=== PATIENT | female | born 1950 | race Caucasian/White ===

== ENCOUNTER → 2017-09-14 | Outpatient (CLI) | payer MEDICARE, OTHER ==
[2015-04-03 18:00] VITALS: BP 150/90
[~2017-09-14] MED LIST: CHOL200074 PO; FISH12002 PO; NIFE30TA17 PO; TOLT2CAP PO; VALS40TA2 PO
--- NOTE | 2017-09-14 13:01 | RAD ---
EXAM: Dual energy x-ray absorptiometry (DEXA). HISTORY: Postmenopausal female presents for osteoporosis screening. COMPARISON: 02/12/2015. TECHNIQUE: Dual energy x-ray absorptiometry of the lumbar spine was performed. Calculation of bone mineral density based on standard deviations above or below the expected young adult normal value (T-score) was completed. FINDINGS: The average bone mineral density in the 1st through 4th lumbar vertebrae is 1.144 g/cmxcm, corresponding with a T-score of -0.3. There has been a 1.1% increase in density of the lumbar spine compared to the prior study. IMPRESSION: Normal bone mineral density. Note: Definitions established by the World Health Organization: 1. Normal: T-score is -1.0 or above. 2. Osteopenia: T-score is between -1.0 and -2.5 . 3. Osteoporosis: T-score is -2.5 or below. Electronically signed by: Michelle Terrell MD (09/14/2017 12:57 PM) [id number]
--- NOTE | 2017-09-14 16:14 | RAD ---
Indication: Routine screening Technique: 2-D intensity bilateral mammogram Comparison: Previous mammogram from 2015. Findings: Breast density category D: The breasts are extremely dense which reduces the sensitivity of the exam. The skin and nipples are within normal limits. There is a 5 mm round mass in the outer right breast approximately 9 cm from the nipple best seen on cc view which was not seen on previous study. No suspicious calcifications, spiculated mass or area of architectural distortion. Benign bilateral calcifications. The left breast demonstrates no mammographic abnormality. Impression: Round mass in the right breast as described above most certainly represents a skin mole. However, confirmation is recommended. BI-RADS 0: Incomplete. Right breast mammogram with skin marker if there is indeed a skin mole present. Otherwise ultrasound of the right outer breast recommended. PQRS compliance statement: Patient information was entered into a reminder system with a target due date for the next mammogram. Mammography is a sensitive method for finding small breast cancers, but it does not detect them all and is not a substitute for careful clinical examination. A negative mammogram does not negate a clinically suspicious finding and should not result in delay in biopsying a clinically suspicious abnormality. "Our facility is accredited by the [employer] Mammography Program."
== END | disposition home or self-care (01) ==
LOC: DXRAD 10:08
PROVIDERS: ATTEND Family Medicine
DX: Z12.31 Encounter for screening mammogram for malignant neoplasm of breast (principal); Z13.820 Encounter for screening for osteoporosis; I12.9 Hypertensive chronic kidney disease with stage 1 through stage 4 chronic kidney disease, or unspecified chronic kidney disease; N18.2 Chronic kidney disease, stage 2 (mild); Z78.0 Asymptomatic menopausal state
CPT/HCPCS: 77063; 77067; 77080

== ENCOUNTER → 2017-09-29 | Outpatient (CLI) | payer MEDICARE, OTHER ==
[2015-04-03 18:00] VITALS: BP 150/90
--- NOTE | 2017-09-29 09:33 | RAD ---
DATE: 09/29/2017 EXAM: DIGITAL DIAGNOSTIC RT HISTORY: Suspicious screening study COMPARISON: 09/14/2017 This study was interpreted with the benefit of Computerized Aided Detection (CAD). The breast parenchyma is dense, which could reduce the sensitivity of mammography. Breast parenchyma level density D. FINDINGS: An upper outer skin mole was marked with a skin marker and additional MLO and cc views were obtained. They confirm the fact that a small nodular density seen in this region on the previous mammograms corresponds to the skin mole. IMPRESSION: There is no mammographic evidence of malignancy in the right breast. BI-RADS CATEGORY: 2 BENIGN FINDING(S) RECOMMENDED FOLLOW-UP: 12M 12 MONTH FOLLOW-UP PQRS compliance statement: Patient information was entered into a reminder system with a target due date for the next mammogram. Mammography is a sensitive method for finding small breast cancers, but it does not detect them all and is not a substitute for careful clinical examination. A negative mammogram does not negate a clinically suspicious finding and should not result in delay in biopsying a clinically suspicious abnormality. "Our facility is accredited by the [employer] Mammography Program."
== END | disposition home or self-care (01) ==
LOC: MAMMO 08:32
PROVIDERS: ATTEND Family Medicine
DX: R92.8 Other abnormal and inconclusive findings on diagnostic imaging of breast (principal); I12.9 Hypertensive chronic kidney disease with stage 1 through stage 4 chronic kidney disease, or unspecified chronic kidney disease; N18.2 Chronic kidney disease, stage 2 (mild)
CPT/HCPCS: 77065

== ENCOUNTER 2018-01-09 17:16 | Emergency (ER) | payer MEDICARE, OTHER ==
[~2018-01-09] VITALS: Ht 160 cm; Wt 74.4 kg
--- NOTE | 2018-01-09 17:49 | ED.ADGEN ---
Past History Past Medical History: Hypertension, Hypothyroid Past Surgical History: No Surgical History Alcohol Use: Occasionally Drug Use: None Adult General Chief Complaint Chief Complaint " .. I really started hurting yesterday... about noon... and it just gotten worse"...".. down here on the Rt...." HPI HPI Patient is a 67 year old female who presents with above hx and complaints of Rt. lower abd. pain. Pt. has hx of nausea and vomiting x 3. Decreased stool , but normal in color. Patient has had very little to eat since noon. No history of travel. No history of specific ill contacts. No history of surgeries. No history of trauma. No history of exposure to ill animals. No exposures to poultry, amphibians or reptiles. No history of colitis or Crohn' s. No history of renal stones . Patient normally follows with Dr. Granger for her hypertension and hypothyroidism. Patient currently rates her pain as 10 out of 10. Pain is been right lower quadrant. Does have rebound to right lower quadrant. Mild flank pain on percussion on right. Mild heel tap on right and obturator sign. Review of Systems Review of Systems Constitutional: Denies fever or chills [] Eyes: Denies change in visual acuity, redness, or eye pain [] HENT: Denies nasal congestion or sore throat [] Respiratory: Denies cough or shortness of breath [] Cardiovascular: No additional information not addressed in HPI [] GI: Complaints of abdominal pain, nausea, vomiting,. Denies bloody stools or diarrhea [] : Denies dysuria or hematuria [] Musculoskeletal: Denies back pain or joint pain [] Integument: Denies rash or skin lesions [] Neurologic: Denies headache, focal weakness or sensory changes [] Endocrine: Denies polyuria or polydipsia [] All other systems were reviewed and found to be within normal limits, except as documented in this note. Family History Family History Noncontributory Current Medications Current Medications Current Medications Medications (Trade) Dose Ordered Sig/Carmita Start Time Stop Time Status Last Admin Dose Admin Acetaminophen (Tylenol) 500 mg STK-MED ONCE 01/09/18 21:06 01/09/18 21:07 DC Ceftriaxone Sodium 1 gm/ Sodium Chloride 50 ml @ 100 mls/hr 1X ONCE 10/7/18 19:30 01/09/18 19:59 DC 01/09/18 19:24 100 MLS/HR Ceftriaxone Sodium (Rocephin) 1 gm STK-MED ONCE 01/09/18 19:21 01/09/18 19:22 DC Famotidine (Pepcid Vial) 20 mg 1X ONCE 01/09/18 18:00 01/09/18 18:01 DC 01/09/18 18:33 20 MG Info (Do NOT chart on this entry -- for MONITORING) 1 each PRN DAILY PRN 01/09/18 19:00 01/09/18 21:42 DC Iohexol (Omnipaque 240 Mg/ml) 50 ml STK-MED ONCE 01/09/18 18:58 01/09/18 18:59 DC Iohexol (Omnipaque 300 Mg/ml) 75 ml 1X ONCE 01/09/18 19:30 01/09/18 19:31 DC 01/09/18 20:10 75 ML Lactated Ringer's 1,000 ml @ 1,000 mls/hr 1X ONCE 01/09/18 19:00 01/09/18 19:59 DC 01/09/18 19:00 1,000 MLS/HR Metronidazole 100 ml @ 100 mls/hr 1X ONCE 01/09/18 20:00 01/09/18 21:00 DC 01/09/18 20:33 100 MLS/HR Morphine Sulfate (Morphine 10mg Syringe) 10 mg 1X ONCE 01/09/18 21:30 01/09/18 21:31 DC Ondansetron HCl (Zofran) 8 mg 1X ONCE 01/09/18 18:00 01/09/18 18:01 DC 01/09/18 18:33 8 MG Sodium Chloride 50 ml @ As Directed STK-MED ONCE 01/09/18 19:21 01/09/18 19:22 DC See nursing for home meds Allergies Allergies Allergies Coded Allergies Type Severity Reaction Last Updated Verified latex Allergy Unknown 01/09/18 Yes Physical Exam Physical Exam Constitutional: in acute distress, non-toxic appearance. [] HENT: Normocephalic, atraumatic, bilateral external ears normal, oropharynx dry , no oral exudates, nose normal. [] Eyes: PERRLA, EOMI, conjunctiva normal, no discharge. [] Neck: Normal range of motion, no tenderness, supple, no stridor. [] Cardiovascular: Tachycardia Heart rate regular rhythm, no murmur [] Lungs & Thorax: Bilateral breath sounds clear to auscultation at apexes. [] Abdomen: Bowel sounds decreased, soft, right lower tenderness, mild epigastric tenderness, no masses, no pulsatile masses. [] Pt. declines rectal or vaginal at this time. Walking - painful to Rt. lower quadrant. Skin: Warm, dry, no erythema, no rash. [] Back: No tenderness, no CVA tenderness. [] Extremities: No tenderness, no cyanosis, no clubbing, ROM intact, no edema. []+ Heel tap and obturator +. Neurologic: Alert and oriented X 3, normal motor function, normal sensory function, no focal deficits noted. [] Psychologic: Affect anxious , mood normal. [] Current Patient Data Vital Signs Vital Signs Date Time Temp Pulse Resp B/P (MAP) Pulse Ox O2 Delivery O2 Flow Rate FiO2 01/09/18 21:04 98 18 153/92 (112) 94 Room Air 01/09/18 17:42 98.4 Lab Results Laboratory Tests Test 01/09/18 17:57 01/09/18 18:14 White Blood Count 10.5 x10^3/uL (4.0-11.0) Red Blood Count 4.87 x10^6/uL (3.50-5.40) Hemoglobin 15.0 g/dL (12.0-15.5) Hematocrit 44.6 % (36.0-47.0) Mean Corpuscular Volume 92 fL (79-100) Mean Corpuscular Hemoglobin 31 pg (25-35) Mean Corpuscular Hemoglobin Concent 34 g/dL (31-37) Red Cell Distribution Width 13.6 % (11.5-14.5) Platelet Count 199 x10^3/uL (140-400) Neutrophils (%) (Auto) 86 % (31-73) H Lymphocytes (%) (Auto) 9 % (24-48) L Monocytes (%) (Auto) 5 % (0-9) Eosinophils (%) (Auto) 0 % (0-3) Basophils (%) (Auto) 1 % (0-3) Neutrophils # (Auto) 8.9 x10^3uL (1.8-7.7) H Lymphocytes # (Auto) 0.9 x10^3/uL (1.0-4.8) L Monocytes # (Auto) 0.5 x10^3/uL (0.0-1.1) Eosinophils # (Auto) 0.0 x10^3/uL (0.0-0.7) Basophils # (Auto) 0.1 x10^3/uL (0.0-0.2) Prothrombin Time 10.7 SEC (9.4-11.4) Prothrombin Time INR 1.1 (0.9-1.1) PTT 25 SEC (23-33) Sodium Level 138 mmol/L (136-145) Potassium Level 3.2 mmol/L (3.5-5.1) L Chloride Level 103 mmol/L (98-107) Carbon Dioxide Level 28 mmol/L (21-32) Anion Gap 7 (6-14) Blood Urea Nitrogen 14 mg/dL (7-20) Creatinine 1.2 mg/dL (0.6-1.0) H Estimated GFR (Cockcroft-Gault) 44.8 Glucose Level 108 mg/dL (70-99) H Calcium Level 9.0 mg/dL (8.5-10.1) Total Bilirubin 1.2 mg/dL (0.2-1.0) H Direct Bilirubin 0.4 mg/dL (0.0-0.2) H Aspartate Amino Transferase (AST) 22 U/L (15-37) Alanine Aminotransferase (ALT) 32 U/L (14-59) Alkaline Phosphatase 53 U/L (46-116) Creatine Kinase 132 U/L (26-192) Troponin I Quantitative < 0.017 ng/mL (0-0.055) Total Protein 7.2 g/dL (6.4-8.2) Albumin 3.6 g/dL (3.4-5.0) Amylase Level 31 U/L (25-115) Lipase 86 U/L (73-393) Urine Collection Type U cath Urine Color Yellow Urine Clarity Cloudy Urine pH 6.0 Urine Specific [place] 1.025 Urine Protein 100 mg/dl (NEG-TRACE) Urine Glucose (UA) Neg mg/dL (NEG) Urine Ketones (Stick) >=160 mg/dL (NEG) Urine Blood Small (NEG) Urine Nitrite Pos (NEG) Urine Bilirubin Neg (NEG) Urine Urobilinogen Dipstick 0.2 mg/dL (0.2 mg/dL) Urine Leukocyte Esterase Small (NEG) Urine RBC 1-2 /HPF (0-2) Urine WBC >40 /HPF (0-4) Urine Squamous Epithelial Cells Occ /LPF Urine Bacteria Many /HPF (0-FEW) Urine Opiates Screen Neg (NEG) Urine Methadone Screen Neg (NEG) Urine Barbiturates Neg (NEG) Urine Phencyclidine Screen Neg (NEG) Urine Amphetamine/Methamphetamine Neg (NEG) Urine Benzodiazepines Screen Neg (NEG) Urine Cocaine Screen Neg (NEG) Urine Cannabinoids Screen Neg (NEG) Urine Ethyl Alcohol Neg (NEG) EKG EKG My interpretation of EKG shows a sinus rhythm at 89 bpm. There is some leftward axis and findings of left ventricular hypertrophy. No findings acute STEMI of contralateral changes.[] Radiology/Procedures Radiology/Procedures My interpretation of acute abdomen shows no acute cardiopulmonary findings. No free air under the diaphragm. Does have scoliosis abdomen portion shows a few isolated bowel loops. Has a non- obstructive pattern. CT shows appendicitis, no free air. See formal report when available. Course & Med Decision Making Course & Med Decision Making Pertinent Labs and Imaging studies reviewed. (See chart for details). Discussed presentation, testing and tx.plan with Dr. Brown- she will accept at [facility]. Discussed presentation, testing and tx. plan with Dr. Diamond, he will accept for surgery consult - planned appendectomy in a.m.. [] Final Impression Final Impression 1. Abdomen pain 2. Urinary tract infection 3. Hypokalemia- 3.2 4. Elevated Creat. 5. Dehydration[] 6. Appendicitis Dragon Disclaimer Dragon Disclaimer This electronic medical record was generated, in whole or in part, using a voice recognition dictation system. TAMMY BYERS MD Jan 09, 2018 17:49
[2018-01-09] MEDS ORDERED: IV RINGERS SOLUTION,LACTATED 1,000 ML IV SCH (17:50)
[2018-01-09] MEDS ORDERED: ONDANSETRON PF 4 MG/2 ML VIAL. IV ONE (18:00)
[2018-01-09] MEDS ORDERED: FAMOTIDINE 20 MG/2 ML VIAL IVP ONE (18:00)
--- NOTE | 2018-01-09 18:04 | EKG ---
[address] [address] Test Date: 2018-01-09 Test Time: 18:03:11 Pat Name: FAHEEM CHA Department: Room: Gender: F Ground Hand: : 1950 Requested By: TAMMY BYERS Order Number: [id number] Reading MD: Lamin Weir MD Measurements Intervals [place] Rate: 89 P: 45 OR: 158 QRS: -29 QRSD: 92 T: 5 QT: 370 QTc: 457 Interpretive Statements SINUS RHYTHM Electronically Signed On 01-12-2018 12:16:09 CDT by Lamin Weir MD
[2018-01-09 18:18] LABS: BASO # 0.1 x10^3/uL (0.0-0.2); BASO % 1 % (0-3); EOS % 0 % (0-3); HEMATOCRIT 44.6 % (36.0-47.0); LYMPH # 0.9 x10^3/uL (1.0-4.8); LYMPH % 9 % (24-48); MEAN CORPUSCULAR HEMOGLOBIN 31 pg (25-35); MEAN CORPUSCULAR HGB CONC 34 g/dL (31-37); MEAN CORPUSCULAR VOLUME 92 fL (79-100); MONO # 0.5 x10^3/uL (0.0-1.1); MONO % 5 % (0-9); NEUT # 8.9 x10^3uL (1.8-7.7); NEUT % 86 % (31-73); PLATELET COUNT 199 x10^3/uL (140-400); RED BLOOD COUNT 4.87 x10^6/uL (3.50-5.40); RED CELL DISTRIBUTION WIDTH 13.6 % (11.5-14.5); WHITE BLOOD COUNT 10.5 x10^3/uL (4.0-11.0)
[2018-01-09 18:24] LABS: ALBUMIN 3.6 g/dL (3.4-5.0); CREATININE 1.2 mg/dL (0.6-1.0); DIRECT BILIRUBIN 0.4 mg/dL (0.0-0.2); GFR 44.8; POTASSIUM 3.2 mmol/L (3.5-5.1); TOTAL BILIRUBIN 1.2 mg/dL (0.2-1.0); TOTAL PROTEIN 7.2 g/dL (6.4-8.2)
--- NOTE | 2018-01-09 18:42 | RAD ---
Single view chest and upright and supine AP views abdomen 01/09/2018 Clinical indication: Right lower quadrant abdominal pain, nausea and vomiting. COMPARISON: None. FINDINGS: Cardiac and mediastinal silhouettes unremarkable. No pleural effusion, pneumothorax or focal consolidation. There is a nonobstructive bowel gas pattern. No pneumoperitoneum. Dextroconvex lumbar scoliosis. IMPRESSION: 1. No acute cardiopulmonary abnormality. 2. No radiographic evidence of bowel obstruction or pneumoperitoneum. Electronically signed by: Franki Palacios MD (01/09/2018 6:39 PM) [facility]
[2018-01-09 18:48] LABS: BACTERIA,URINE MANY /HPF (0-FEW); BILIRUBIN,URINE NEG (NEG); CLARITY,URINE CLOUDY; COLOR,URINE YELLOW; GLUCOSE,URINE NEG (NEG); NITRITE,URINE POS (NEG); SQUAMOUS EPITHELIAL CELL,UR OCC /LPF; UROBILINOGEN,URINE 0.2 mg/dL (0.2 mg/dL); WBC,URINE >40 /HPF (0-4)
[2018-01-09 18:53] LABS: BARBITURATES NEG (NEG); BENZODIAZEPINES NEG (NEG); CANNABINOIDS NEG (NEG); COCAINE NEG (NEG); METHADONE NEG (NEG); OPIATES NEG (NEG); PHENCYCLIDINE NEG (NEG)
[2018-01-09 18:55] LABS: AMPHETAMINE/METHAMPHETAMINE NEG (NEG)
[2018-01-09] MEDS ORDERED: IOHEXOL 240 MG/ML 50ML VIAL. ONE (18:58)
[2018-01-09] MEDS ORDERED: CONTRAST GIVEN MC PRN (19:00)
[2018-01-09] MEDS ORDERED: IV RINGERS SOLUTION,LACTATED 1,000 ML IV ONE (19:00)
[2018-01-09] MEDS ORDERED: IV NORMAL SALINE 50ML 50 ML ONE (19:21)
[2018-01-09] MEDS ORDERED: cefTRIAXone SODIUM 1 GM VIAL IV ONE (19:21)
[2018-01-09] MEDS ORDERED: IOHEXOL 240 MG/ML 50ML VIAL. PO ONE (19:30)
[2018-01-09] MEDS ORDERED: IOHEXOL 300 MG/ML 75 ML VIAL. IV ONE (19:30)
[2018-01-09] MEDS ORDERED: MORPHINE SULFATE 10 MG/ML SYRINGE. SQ ONE ×2 (19:30→21:30)
--- NOTE | 2018-01-09 20:38 | RAD ---
CT abdomen and pelvis with contrast 01/09/2018 CLINICAL INDICATION: Right lower quadrant abdominal pain, nausea and vomiting. COMPARISON: None. TECHNIQUE: Multiple CT images of the abdomen and pelvis were obtained following the intravenous administration of 60 mL Omnipaque 300. *One or more of the following individualized dose reduction techniques were utilized for this examination: 1. Automated exposure control. 2. Adjustment of the mA and/or kV according to patient size. 3. Use of iterative reconstruction technique. FINDINGS: Heart size normal without significant pericardial effusion. The visualized lung bases are clear. Liver, gallbladder, spleen, adrenal glands, pancreas and kidneys are unremarkable. Abdominal aorta normal in caliber. Calcified atheromatous disease at the origin of the main right renal artery with luminal stenosis not accurately assessed due to phase of contrast timing but approaches at least 50 percent. No retroperitoneal or mesenteric lymphadenopathy. Small and large bowel loops are normal in caliber without obstruction. Dilatation of the appendix with intraluminal appendicolith periappendiceal stranding and edema series 2/image 55. Uterus and adnexa are unremarkable. Mildly distended unopacified urinary bladder unremarkable. Dextroconvex thoracolumbar scoliosis. There are no destructive osseous lesions. IMPRESSION: Acute uncomplicated appendicitis. These results were discussed with Dr. Michaud of the emergency service by telephone at 8:35 PM 01/09/[address] Franki Palacios. Electronically signed by: Franki Palacios MD (01/09/2018 8:35 PM) [facility]
[2018-01-09 21:04] VITALS: BP 153/92
[2018-01-09] MEDS ORDERED: ACETAMINOPHEN 500 MG TABLET PO ONE ×2 (21:06→21:15)
== END 2018-01-09 21:41 | disposition short-term general hospital (02) ==
LOC: ER 17:16
DX: N39.0 Urinary tract infection, site not specified (principal); E87.6 Hypokalemia; E86.0 Dehydration; K37 Unspecified appendicitis; R79.89 Other specified abnormal findings of blood chemistry; I10 Essential (primary) hypertension; E03.9 Hypothyroidism, unspecified; Z91.040 Latex allergy status
CPT/HCPCS: 36415; 74022; 74177; 80048; 80076; 80307; 81001; 82150; 82550; 83690; 84484; 85025; 85610; 85730; 87086; 93005; 96361; 96365; 96367; 96372; 96375; 99285; J0696; J2270; J2405; J3490; J7120; Q9966; Q9967; S0028; 96368; G0479

== ENCOUNTER → 2018-09-30 | Outpatient (CLI) | payer MEDICARE, OTHER ==
--- NOTE | 2018-09-30 11:24 | RAD ---
DATE: 09/30/2018 EXAM: MAMMO GILBERT SCREENING BILATERAL HISTORY: Routine screening COMPARISON: 09/29/2017, 09/14/2017 This study was interpreted with the benefit of Computerized Aided Detection (CAD). Breast Density: DENSE The breast parenchyma is dense, which could reduce the sensitivity of mammography. Breast parenchyma level density D. FINDINGS: 2-D and 3-D tomosynthesis imaging was performed in CC and MLO projections. No new or enlarging breast densities are seen. No spiculated mass or architectural distortion is evident. Benign type calcifications are present. No suspicious microcalcifications have developed. IMPRESSION: There is no mammographic evidence of malignancy in either breast. BI-RADS CATEGORY: 2 BENIGN FINDING(S) RECOMMENDED FOLLOW-UP: 12M 12 MONTH FOLLOW-UP PQRS compliance statement: Patient information was entered into a reminder system with a target due date for the next mammogram. Mammography is a sensitive method for finding small breast cancers, but it does not detect them all and is not a substitute for careful clinical examination. A negative mammogram does not negate a clinically suspicious finding and should not result in delay in biopsying a clinically suspicious abnormality. "Our facility is accredited by the [employer] Mammography [employer]."
== END | disposition home or self-care (01) ==
LOC: MAMMO 08:52
PROVIDERS: ATTEND Family Medicine
DX: Z12.31 Encounter for screening mammogram for malignant neoplasm of breast (principal); N64.89 Other specified disorders of breast
CPT/HCPCS: 77063; 77067

== ENCOUNTER → 2019-02-06 | Outpatient (CLI) | payer MEDICARE, OTHER ==
--- NOTE | 2019-02-06 12:29 | RAD ---
EXAM: Bilateral lower extremity venous Doppler sonogram. HISTORY: Pain and swelling. TECHNIQUE: Osei scale and color Doppler sonographic evaluation of the left lower extremity veins with spectral waveform analysis was performed. FINDINGS: There is normal color flow, normal compressibility and there are normal spectral waveforms in the common femoral, superficial femoral, popliteal, posterior tibial and greater saphenous veins. There is superficial venous thrombosis involving a varicose veins arising from the lesser saphenous vein within the posterior calf. This corresponds with the area of reported pain and swelling. IMPRESSION: 1. Superficial venous thrombosis involving a varicose vein within the posterior calf. 2. No Doppler evidence of lower extremity deep venous thrombosis. Electronically signed by: Michelle Terrell MD (02/06/2019 12:26 PM) [place] [id number]
== END | disposition home or self-care (01) ==
LOC: US 11:36
PROVIDERS: ATTEND Family Medicine
DX: I82.812 Embolism and thrombosis of superficial veins of left lower extremity (principal); I86.8 Varicose veins of other specified sites
CPT/HCPCS: 93971

== ENCOUNTER → 2019-04-03 | Outpatient (CLI) | payer MEDICARE, OTHER ==
--- NOTE | 2019-04-03 15:36 | RAD ---
EXAM: Right knee, 3 views. HISTORY: Pain. Fall. COMPARISON: None. FINDINGS: 3 views of the right knee are obtained. There are healed fibular and tibial diaphyseal fractures, the latter of which is partially included on the [id number]. There is no acute fracture, dislocation or subluxation. There is no significant joint effusion. IMPRESSION: No acute osseous finding. Electronically signed by: Michelle Terrell MD (04/03/2019 3:33 PM) [place] [id number]
== END | disposition home or self-care (01) ==
LOC: DXRAD 15:10
PROVIDERS: ATTEND Family Medicine
DX: M25.561 Pain in right knee (principal)
CPT/HCPCS: 73562

== ENCOUNTER → 2019-12-08 | Outpatient (CLI) | payer MEDICARE, OTHER ==
[~2019-12-08] MED LIST changes: +IOHEXOL 240 MG/ML 50ML VIAL. ONE; +IOHEXOL 300 MG/ML 75 ML VIAL. IV ONE; -NIFE30TA17 PO; +NIFE30TA95 PO
--- NOTE | 2019-12-08 16:36 | RAD ---
Exam: CT of abdomen and pelvis with contrast INDICATION: Abdominal pain with rectal bleeding TECHNIQUE: Sequential axial images through the abdomen and pelvis obtained following the administration of 60 mL of Omni 300 IV contrast. Sagittal and coronal reformatted images were reconstructed from the axial data and reviewed. Comparisons: None FINDINGS: Heart size is normal. No pericardial effusion. Strandy opacities at the dependent portion lungs likely representing atelectasis. No pleural effusion. Liver, spleen, pancreas, gallbladder and adrenals are unremarkable. No perinephric inflammation or hydronephrosis. No renal or ureteral calculi are identified. Bladder is decompressed not well evaluated. Uterus is not enlarged. No abnormal adnexal mass. Mild wall thickening involving the descending colon. Remainder of the large and small bowel are unremarkable. Appendix is not identified. No free intra-abdominal air or fluid. No obstruction. Abdominal aorta has a normal course and caliber. Abdominal vasculature is patent. No enlarged abdominal lymph nodes are identified. No suspicious osseous lesions or acute fractures. IMPRESSION: Wall thickening involving the descending colon favored represent colitis. This may be infectious or inflammatory in etiology. Exposure: One or more of the following in the visualized dose reduction techniques were utilized for this examination: 1. Automated exposure control 2. Adjustment of the MA and/or KV according to patient size 3. Use of iterative of reconstructive technique Electronically signed by: Diomedes Del Valle MD (12/08/2019 4:33 PM) [id number]
== END | disposition home or self-care (01) ==
LOC: CT 14:41
PROVIDERS: ATTEND Physician Assistant
DX: K92.1 Melena (principal); K52.9 Noninfective gastroenteritis and colitis, unspecified
CPT/HCPCS: 74177; Q9967

== ENCOUNTER → 2019-12-09 | Outpatient (CLI) | payer MEDICARE, OTHER ==
[~2019-12-09] MED LIST changes: -IOHEXOL 240 MG/ML 50ML VIAL. ONE; -IOHEXOL 300 MG/ML 75 ML VIAL. IV ONE
[2019-12-09 10:18] LABS: BASO # 0.1 x10^3/uL (0.0-0.2); BASO % 1 % (0-3); EOS # 0.1 x10^3/uL (0.0-0.7); EOS % 2 % (0-3); HEMATOCRIT 42.7 % (36.0-47.0); LYMPH # 1.7 x10^3/uL (1.0-4.8); LYMPH % 24 % (24-48); MEAN CORPUSCULAR HEMOGLOBIN 29 pg (25-35); MEAN CORPUSCULAR HGB CONC 33 g/dL (31-37); MEAN CORPUSCULAR VOLUME 89 fL (79-100); MONO # 0.5 x10^3/uL (0.0-1.1); MONO % 7 % (0-9); NEUT # 4.8 x10^3uL (1.8-7.7); NEUT % 66 % (31-73); PLATELET COUNT 253 x10^3/uL (140-400); RED BLOOD COUNT 4.82 x10^6/uL (3.50-5.40); RED CELL DISTRIBUTION WIDTH 14.4 % (11.5-14.5); WHITE BLOOD COUNT 7.3 x10^3/uL (4.0-11.0)
== END | disposition home or self-care (01) ==
LOC: LAB 09:20
PROVIDERS: ATTEND Physician Assistant
DX: K92.1 Melena (principal)
CPT/HCPCS: 36415; 85025

== ENCOUNTER → 2020-03-22 | Outpatient (CLI) | payer MEDICARE, OTHER ==
[~2020-03-22] MED LIST changes: +IOHEXOL 240 MG/ML 50ML VIAL. ONE; +IOHEXOL 240 MG/ML 50ML VIAL. PO ONE; +IOHEXOL 300 MG/ML 75 ML VIAL. IV ONE
--- NOTE | 2020-03-22 13:46 | RAD ---
Examination: CT ABDOMEN+PELVIS W History: Reason: SEVERE ABDOMINAL PAIN, CONSTIPATION, DIARRHEA HX COLITIS / Spl. Instructions: / His tory: Comparison/Correlation: 12/08/2019 CT abdomen and pelvis with contrast Findings: Axial images of the abdomen and pelvis were obtained following IV and oral contrast. Sagitt al and coronal reformatted images were provided. Minimal linear atelectasis or scarring involving the right lung base. Minimal pleural thickening not ed. Liver, spleen, pancreas, adrenal glands are normal. Gallbladder fossa is unremarkable. Symmetric perf usion of the renal cortices noted. Mild fullness of the pelvicalyceal systems noted. No isai hydrone phrosis. Urinary bladder is unremarkable. No extraluminal gas. No findings to suggest bowel obstruction. No bowel wall thickening. Contrast dis tends small bowel loops at the right lower abdomen. There is no significant distention of proximal sm all bowel or distal small bowel however. Uterus is unremarkable. Surgical clips are present medial to the cecum. Appendix is not visualized. No enlarged abdominal or pelvic lymph nodes. No ascites or pelvic free fluid. Exaggerated lordosis of the lumbar spine is present. Scoliosis of the lower thoracic and upper lumbar spine is evident. Impression: No inflammatory processes identified involving the bowel. Findings previously present which raise que stion of colitis have resolved. While there is a contrast filled mildly distended bowel loop at the right lower abdomen and pelvis, n o other findings to suggest obstruction are evident. Consider follow-up obstruction series Clinical data warranted for further evaluation. One or more of the following individualized dose reduction techniques were utilized for this examinat ion: 1. Automated exposure control. 2. Adjustment of the mA and/or kV according to patient size. 3. Use of iterative reconstruction technique. Electronically signed by: Daniel Mayer MD (03/22/2020 1:44 PM) [id number]
== END ==
LOC: CT 11:54
PROVIDERS: ATTEND Family Medicine
DX: K59.00 Constipation, unspecified (principal); R10.84 Generalized abdominal pain; R19.7 Diarrhea, unspecified
CPT/HCPCS: 74177; Q9966; Q9967

== ENCOUNTER 2020-03-25 20:11 | Emergency (ER) | payer MEDICARE, OTHER ==
[~2020-03-25] VITALS: Ht 160 cm; Wt 74.1 kg
[~2020-03-25 20:11] MED LIST changes: -IOHEXOL 240 MG/ML 50ML VIAL. ONE; -IOHEXOL 240 MG/ML 50ML VIAL. PO ONE; -IOHEXOL 300 MG/ML 75 ML VIAL. IV ONE
[2020-03-25] MEDS ORDERED: PROCHLORPERAZINE 10 MG/2 ML VIAL. IV ONE (20:45)
--- NOTE | 2020-03-25 20:51 | PHYS DOC ---
Past History Past Medical History: Hypertension, Hypothyroid (OSMIN BEE APRN) Past Surgical History: No Surgical History (OSMIN BEE APRN) Alcohol Use: Occasionally Drug Use: None (OSMIN BEE APRN) General Adult EDM: Chief Complaint: ABDOMINAL PAIN HPI: HPI: Patient is a 70-year-old female who presents with abdominal pain and nausea and vomiting for 2 weeks. Patient states that she was seen by her primary care physician who ordered a CT and an enema. Patient reports very little relief from the enema. Patient came to the ER tonight for an increase in abdominal pain. Patient's last bowel movement was yesterday which was not a normal bowel movement. Patient states she never has issues with constipation and this is new for her. Patient denies fever or recent illness. (OSMIN BEE APRN) Review of Systems: Review of Systems: Constitutional: Denies fever or chills Eyes: Denies change in visual acuity HENT: Denies nasal congestion or sore throat Respiratory: Denies cough or shortness of breath Cardiovascular: Denies chest pain or edema GI: Reports abdominal pain, nausea, vomiting, constipation. Denies bloody stools or diarrhea : Denies dysuria Musculoskeletal: Denies back pain or joint pain Integument: Denies rash Neurologic: Denies headache, focal weakness or sensory changes Endocrine: Denies polyuria or polydipsia Lymphatic: Denies swollen glands Psychiatric: Denies depression or anxiety (OSMIN BEE APRN) Current Medications: Current Meds: Current Medications Medications (Trade) Dose Ordered Sig/Carmita Start Time Stop Time Status Last Admin Dose Admin Prochlorperazine Edisylate (Compazine) 10 mg 1X ONCE 03/25/20 20:45 03/25/20 20:46 UNV (OSMIN BEE APRN) Allergies: Allergies: Allergies Coded Allergies Type Severity Reaction Last Updated Verified latex Allergy Unknown 01/09/18 Yes (OSMIN BEE APRN) Physical Exam: PE: Constitutional: Well developed, well nourished, no acute distress, non-toxic appearance. [] HENT: Normocephalic, atraumatic, bilateral external ears normal, oropharynx moist, no oral exudates, nose normal. [] Eyes: PERRLA, EOMI, conjunctiva normal, no discharge. [] Neck: Normal range of motion, no tenderness, supple, no stridor. [] Cardiovascular:Heart rate regular rhythm, no murmur [] Lungs & Thorax: Bilateral breath sounds clear to auscultation [] Abdomen: Bowel sounds normal, soft, no tenderness, no masses, no pulsatile masses. [] Skin: Warm, dry, no erythema, no rash. [] Back: No tenderness, no CVA tenderness. [] Extremities: No tenderness, no cyanosis, no clubbing, ROM intact, no edema. [] Neurologic: Alert and oriented X 3, normal motor function, normal sensory function, no focal deficits noted. [] Psychologic: Affect normal, judgement normal, mood normal. [] (OSMIN BEE APRN) EKG: EKG: [] (OSMIN BEE APRN) Radiology/Procedures: Radiology/Procedures: []Exam: CT of abdomen and pelvis without contrast INDICATION: Abdominal pain TECHNIQUE: Sequential axial images through the abdomen and pelvis obtained without IV contrast. Sagittal and coronal reformatted images were reconstructed from the axial data and reviewed. Comparisons: 03/22/2020 FINDINGS: Heart size is normal. No pericardial effusion. Strandy opacities at dependent portion lungs likely cyst. No pleural effusion. Evaluation of the solid organs is limited secondary to noncontrast technique. Liver, spleen, pancreas, gallbladder and adrenals are unremarkable. No perinephric inflammation or hydronephrosis. No renal or ureteral calculi are identified. Bladder is partially distended and not well evaluated. Uterus is nonenlarged. No abnormal adnexal mass. Numerous dilated loops of small bowel are noted throughout the abdomen. Decompressed loops of small bowel are seen in the right lower quadrant. Large bowel is decompressed. No free abdominal air or fluid. Abdominal aorta has a normal course and caliber. No enlarged abdominal lymph nodes are identified. No suspicious osseous lesions or acute fractures. IMPRESSION: Findings a small bowel obstruction. Definitive transition point is not identified however is likely in the right lower quadrant. Exposure: One or more of the following in the visualized dose reduction techniques were utilized for this examination: 1. Automated exposure control 2. Adjustment of the MA and/or KV according to patient size 3. Use of iterative of reconstructive technique Electronically signed by: Diomedes Del Valle MD (03/25/2020 9:27 PM) [facility] (OSMIN BEE APRN) Radiology/Procedures: IMAGING REPORT Signed PATIENT: CHASeptember ACCOUNT: [id number] : 1950 LOCATION: ER AGE: 70 SEX: F EXAM STATUS: REG ER ORD. PHYSICIAN: PASHA CHAKRABORTY DO REASON: confirm ngt PROCEDURE: KUB Single view abdomen dated 03/25/2020. Comparison made to 03/25/2020. CLINICAL INDICATION: NG placement. FINDINGS: Single upright portable exam performed. Interval placement of NG tube with tip projected to the level gastric fundus. Bowel gas pattern nonobstructive. There is contrast material in the colon. Lungs are clear. No consolidation. Impression: NG tube tip at gastric fundus. Electronically signed by: George Hopper MD (03/25/2020 10:58 PM) [facility] AND SIGNED BY: GEORGE HOPPER MD DATE: 03/25/20 [id number] CC: BONNIE HATHAWAY MD; PASHA CHAKRABORTY DO ~MTH0 0 (PASHA CHAKRABORTY DO) Heart Score: Risk Factors: Risk Factors: DM, Current or recent (<one month) smoker, HTN, HLP, family history of CAD, obesity. Risk Scores: Score 0 - 3: 2.5% MACE over next 6 weeks - Discharge Home Score 4 - 6: 20.3% MACE over next 6 weeks - Admit for Clinical Observation Score 7 - 10: 72.7% MACE over next 6 weeks - Early Invasive Strategies (OSMIN BEE APRN) Course & Med Decision Making: Course & Med Decision Making 7-year-old female presents with abdominal pain and nausea vomiting for 2 weeks. Compazine given for nausea. CT ordered to rule out bowel obstruction. CT shows a small bowel obstruction. Definitive transition point is not identified however is likely in the right lower quadrant. [] (OSMIN BEE APRN) Course & Med Decision Making This patient was accepted by Dr. Rocha for transfer to [facility]. NG tube was placed in ED with normal positioning via x-ray. Patient was n.p.o. and started on IV fluids. Patient was stable for transfer and agreed with this plan. (PASHA CHAKRABORTY DO) Amilcar Disclaimer: Amilcar Disclaimer: This electronic medical record was generated, in whole or in part, using a voice recognition dictation system. (OSMIN BEE APRN) Departure Departure: Impression: Primary Impression: Small bowel obstruction Disposition: 05 DC/TRF OTHER TYPE INSTITUTI Admitting Physician: Juan Mcnair (to [facility]) (PASHA CHAKRABORTY DO) Condition: STABLE Referrals: BONNIE HATHAWAY MD (PCP) OSMIN BEE APRN Mar 25, 2020 20:51 PASHA CHAKRABORTY DO Mar 26, 2020 00:18
[2020-03-25] MEDS ORDERED: IV NORMAL SALINE 1,000ML 1,000 ML IV ONE (21:00)
[2020-03-25 21:02] LABS: BASO % 0 % (0-3); EOS # 0.1 x10^3/uL (0.0-0.7); EOS % 1 % (0-3); HEMATOCRIT 42.3 % (36.0-47.0); HEMOGLOBIN 13.2 g/dL (12.0-15.5); LYMPH # 1.9 x10^3/uL (1.0-4.8); LYMPH % 22 % (24-48); MEAN CORPUSCULAR HEMOGLOBIN 26 pg (25-35); MEAN CORPUSCULAR HGB CONC 31 g/dL (31-37); MEAN CORPUSCULAR VOLUME 84 fL (79-100); MONO # 0.7 x10^3/uL (0.0-1.1); MONO % 9 % (0-9); NEUT # 5.8 x10^3uL (1.8-7.7); NEUT % 68 % (31-73); PLATELET COUNT 278 x10^3/uL (140-400); RED BLOOD COUNT 5.02 x10^6/uL (3.50-5.40); RED CELL DISTRIBUTION WIDTH 14.9 % (11.5-14.5); WHITE BLOOD COUNT 8.5 x10^3/uL (4.0-11.0)
[2020-03-25 21:22] LABS: ALBUMIN 4.1 g/dL (3.4-5.0); ALBUMIN/GLOBULIN RATIO 1.1 (1.0-1.7); CALCIUM 9.7 mg/dL (8.5-10.1); CREATININE 1.4 mg/dL (0.6-1.0); GFR 37.2; TOTAL BILIRUBIN 0.5 mg/dL (0.2-1.0); TOTAL PROTEIN 7.8 g/dL (6.4-8.2)
[2020-03-25 21:23] LABS: POTASSIUM 3.6 mmol/L (3.5-5.1)
--- NOTE | 2020-03-25 21:30 | RAD ---
Exam: CT of abdomen and pelvis without contrast INDICATION: Abdominal pain TECHNIQUE: Sequential axial images through the abdomen and pelvis obtained without IV contrast. Sagit juanita and coronal reformatted images were reconstructed from the axial data and reviewed. Comparisons: 03/22/2020 FINDINGS: Heart size is normal. No pericardial effusion. Strandy opacities at dependent portion lungs likely [facility]. No pleural effusion. Evaluation of the solid organs is limited secondary to noncontrast technique. Liver, spleen, pancreas, gallbladder and adrenals are unremarkable. No perinephric inflammation or hydronephrosis. No renal or ureteral calculi are identified. Bladder is partially distended and not well evaluated. Uterus is nonenlarged. No abnormal adnexal mas s. Numerous dilated loops of small bowel are noted throughout the abdomen. Decompressed loops of small b owel are seen in the right lower quadrant. Large bowel is decompressed. No free abdominal air or flui d. Abdominal aorta has a normal course and caliber. No enlarged abdominal lymph nodes are identified. No suspicious osseous lesions or acute fractures. IMPRESSION: Findings a small bowel obstruction. Definitive transition point is not identified however is likely i n the right lower quadrant. Exposure: One or more of the following in the visualized dose reduction techniques were utilized for this examination: 1. Automated exposure control 2. Adjustment of the MA and/or KV according to patient size 3. Use of iterative of reconstructive technique Electronically signed by: Diomedes Del Valle MD (03/25/2020 9:27 PM) [facility]
--- NOTE | 2020-03-25 21:47 | RAD ---
Exam: Chest one view INDICATION: Abdominal pain, fever, chills TECHNIQUE: Frontal view of the chest Comparisons: None FINDINGS: The cardiomediastinal silhouette and pulmonary vessels are within normal limits. The lung and pleural spaces are clear. IMPRESSION: No acute cardiopulmonary process. Electronically signed by: Diomedes Del Valle MD (03/25/2020 9:45 PM) [facility]
[2020-03-25] MEDS ORDERED: HYDROmorphone PF 1 MG/ML DISP.SYRIN IVP ONE (22:15)
[2020-03-25 22:40] VITALS: BP 149/85
--- NOTE | 2020-03-25 23:01 | RAD ---
Single view abdomen dated 03/25/2020. Comparison made to 03/25/2020. CLINICAL INDICATION: NG placement. FINDINGS: Single upright portable exam performed. Interval placement of NG tube with tip projected to the level gastric fundus. Bowel gas pattern nonobstructive. There is contrast material in the colon. Lungs are clear. No consolidation. Impression: NG tube tip at gastric fundus. Electronically signed by: George Hopper MD (03/25/2020 10:58 PM) [facility]
--- NOTE | 2020-03-25 23:18 | EKG ---
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
== END 2020-03-26 00:30 | disposition short-term general hospital (02) ==
LOC: ER 20:11
DX: K56.699 Other intestinal obstruction unspecified as to partial versus complete obstruction (principal); R11.2 Nausea with vomiting, unspecified; I10 Essential (primary) hypertension; E03.9 Hypothyroidism, unspecified; Z91.040 Latex allergy status
CPT/HCPCS: 36415; 43752; 71045; 74018; 74176; 80053; 82553; 84484; 85025; 93005; 96361; 96374; 96375; 99285; J0780; J1170; J7030

== ENCOUNTER → 2020-07-04 | Outpatient (CLI) | payer MEDICARE, OTHER ==
--- NOTE | 2020-07-04 15:29 | RAD ---
EXAM: DUAL ENERGY X-RAY ABSORPTIOMETRY (DEXA). HISTORY: Postmenopausal screening. FINDINGS: The lowest measured T-score is -2.4 in the right femoral neck, based on a bone mineral dens ity of 0.645 g/cm^2. Refer to the worksheets for full detail. In comparison with the baseline study of 04/16/2009, average bone mineral density at the lumbar spine has changed +1.9%, while the average density at the hips has changed -7.2%. IMPRESSION: Low bone mass. Bone mineral density yields a T-score between -1.0 and -2.5. Fracture risk is increase d. FRAX was not calculated. METHODOLOGY: Dual energy x-ray absorptiometry was performed to measure bone mineral density. The foll owing analysis is based on the 2019 Official Positions of the International Society for Clinical Dens itometry: Measurements of the hips and the average of L1-L4 are preferred. When the spine and/or hip cannot be feasibly measured or interpreted, or in the setting of hyperparathyroidism, distal radial bone minera l density may be measured. The lumbar spine T-score is based on the average bone mineral density of L1-L4. In the setting of art ifact or anatomic abnormality, some lumbar levels may be excluded, and the remaining levels used for calculation. A single lumbar level is not used for diagnosis, and if only a single level is available for assessment, another anatomic site will be used to assign a diagnosis. The hip T-score is based on the bone mineral density measurement of the femoral neck or total proxima l femur of either side, whichever is lowest. Bilateral mean values are not used for diagnosis. The forearm T-score is derived from 33% of the distal radius of the nondominant forearm. For postmenopausal and perimenopausal women, and men age 50 or older, of all ethnic groups, T-scores are calculated through comparison of the current measurement with the NHANES III database standard fo r females aged 20-29 years. The lowest T-score of the evaluated anatomic sites is used to a ssign a diagnosis based on the World Health Organization densitometric classification. In premenopausal females and males younger than age 50, a Z-score is calculated based on population s pecific reference data for patient sex and self-reported ethnicity. Electronically signed by: Zhao Russell MD (07/04/2020 3:26 PM) [facility]
--- NOTE | 2020-07-05 11:14 | RAD ---
PROCEDURE: MG BILAT SCREEN+GILBERT HISTORY: The patient is 70 years old and is seen for Reason: SCREENING / Spl. Instructions: / Histor y: . COMPARISON: September 30, 2018 TECHNIQUE: CC and MLO views of both breasts were obtained. Images were processed by the [employer] computer-aided detection system. DENSITY: The breast parenchyma is extremely dense, which could obscure a lesion on mammography. FINDINGS: No developing mass, suspicious calcifications or architectural distortion. IMPRESSION: Negative. No evidence of malignancy. Recommend annual screening mammograms per [employer] guidelines. She will be due in one year. BI-RADS category 1 Negative Patient entered into a reminder system for annual screening mammogram. Electronically signed by: Fausto Pitts DO (07/05/2020 11:11 AM) [id number]
== END ==
LOC: MAMMO 14:22
PROVIDERS: ATTEND Family Medicine
DX: Z12.31 Encounter for screening mammogram for malignant neoplasm of breast (principal); M89.9 Disorder of bone, unspecified; N95.1 Menopausal and female climacteric states; N95.9 Unspecified menopausal and perimenopausal disorder
CPT/HCPCS: 77063; 77067; 77080

== ENCOUNTER → 2020-07-24 | Outpatient (CLI) | payer MEDICARE, OTHER ==
--- NOTE | 2020-07-24 10:00 | RAD ---
EXAM: Left lower extremity venous Doppler sonogram. HISTORY: DVT follow-up. Anticoagulation. TECHNIQUE: Osei scale and color Doppler sonographic evaluation of the left lower extremity veins with spectral waveform analysis was performed. FINDINGS: There is nonocclusive thrombus within the left common femoral vein and there is nonocclusiv e superficial venous thrombosis involving the greater saphenous vein from the saphenofemoral junction to the proximal greater saphenous vein. There is normal color flow, normal compressibility and there are normal spectral waveforms in the remainder of the lower extremity veins. IMPRESSION: 1. Nonocclusive deep venous thrombosis involving the left common femoral vein. This is unchanged comp ared to a study performed 04/02/2020. 2. Nonocclusive superficial venous thrombosis involving the greater saphenous vein from the saphenofe moral junction to the proximal segment. This appears to be slightly decreased compared to the prior e xam. Electronically signed by: Michelle Terrell MD (07/24/2020 9:58 AM) [id number]
== END ==
LOC: US 09:29
PROVIDERS: ATTEND Family Medicine
DX: I82.412 Acute embolism and thrombosis of left femoral vein (principal); I82.812 Embolism and thrombosis of superficial veins of left lower extremity
CPT/HCPCS: 93971

== ENCOUNTER → 2021-07-18 | Outpatient (CLI) | payer MEDICARE, OTHER ==
--- NOTE | 2021-07-18 14:25 | RAD ---
INDICATION: 71 years of age asymptomatic female patient presents for screening mammography. Family hi story of breast cancer in sister in her 40s. TECHNIQUE: Full field craniocaudal and mediolateral oblique images of both breasts were obtained usi ng digital technique with tomosynthesis and also analyzed with computer-aided detection software. COMPARISON: Prior mammographic imaging dating back to 09/14/2017. BREAST COMPOSITION: Category C: The breast tissue is heterogeneously dense, which could obscure detec tion of small masses. FINDINGS: No suspicious masses, microcalcifications or architectural distortion is present to suggest malignanc y in either breast. Benign vascular calcifications in both breasts. The visualized axillae are unremarkable. IMPRESSION: No mammographic evidence of malignancy. RECOMMENDATION: Annual screening mammography is recommended, unless clinically indicated sooner based on symptoms or change in physical exam. BIRADS 2: BENIGN This study was interpreted with the benefit of Computerized Aided Detection (CAD). ?Your patient's mammogram demonstrates that she has dense breast tissue (breast density category C or D), which could hide abnormalities, and if she has other risk factors for breast cancer that have be en identified, she might benefit from supplemental screening tests that may be suggested by you as he r ordering physician. Dense breast tissue, in and of itself, is a relatively common condition. Theref ore, this information is not provided to cause undue concern, but rather to raise your awareness and to promote discussion with your patient regarding the presence of other risk factors, in addition to dense breast tissue. Your patient's mammography results will be sent to her. Patient information is entered into the reminder system with a target due date for the next screening mammogram. Mammography is the most sensitive method for finding small breast cancers, but it does not detect the m all and is not a substitute for careful clinical examination. A negative mammogram does not negate a clinically suspicious finding and should not result in delay in biopsying a clinically suspicious a bnormality. "Our facility is accredited by the [employer] Mammography Program." Electronically signed by: Alverto Thomas DO (07/18/2021 2:22 PM) [id number]
== END ==
LOC: MAMMO 09:56
PROVIDERS: ATTEND Family Medicine
DX: Z12.31 Encounter for screening mammogram for malignant neoplasm of breast (principal)
CPT/HCPCS: 77063; 77067